=== PATIENT | female | born 1960 | race Caucasian/White ===

== ENCOUNTER → 2020-12-20 | Outpatient (CLI) | payer OTHER ==
[~2020-12-20] VITALS: Ht 160 cm; Wt 57.2 kg
[2020-12-20] VITALS (8 sets, daily range): BP systolic 112–127; BP diastolic 65–72
[~2020-12-20] MED LIST: ACETAMINOPHEN 325 MG TAB PO ONE; REGENERON 1200mg/250ml NS 250 ML IV ONE
== END | disposition home or self-care (01) ==
LOC: ER 09:04
PROVIDERS: ATTEND Internal Medicine
DX: U07.1 COVID-19 (principal)
CPT/HCPCS: J7050; M0243; Q0244